=== PATIENT | female | born 1960 | race Caucasian/White ===

== ENCOUNTER 2018-10-28 06:35 | Day surgery (SDC) | payer OTHER, SELFPAY ==
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
[2018-10-28] VITALS (7 sets, daily range): BP systolic 113–140; BP diastolic 56–68; PULSE 48–75; RESP 16–18; TEMP 36.6–37.7; O2SAT 92–100; BMI 20.1
--- NOTE | 2018-10-28 06:42 | EKG12_ITS ---
Test Reason : PRE-OP Blood Pressure : / mmHG Vent. Rate : 062 BPM Atrial Rate : 062 BPM P-R Int : 132 ms QRS Dur : 078 ms QT Int : 416 ms P-R-T Axes : 065 029 058 degrees QTc Int : 422 ms Normal sinus rhythm Normal ECG Confirmed by DIANN MONTGOMERY, YUE ([id number]), acquisition editor ISABELLA LOCKETT ([id number]) on 11/02/2018 2:11:03 PM Referred By: Portillo Vale Confirmed By:YUE TIDWELL MD
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
[2018-10-28] MEDS: Cefazolin 2 GM in 0.9% Normal Saline 100 ML IV (08:53)
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
== END 2018-10-28 13:22 | disposition home or self-care (01) ==
LOC: SDC 06:39 → AC 06:40
PROVIDERS: Family Provider Family Medicine; PCP Family Medicine; Referring Provider Specialist; Visit Provider Specialist
PROC: (CPT 24685; principal; 2018-10-28 08:30)
DX: S52.031A Displaced fracture of olecranon process with intraarticular extension of right ulna, initial encounter for closed fracture (principal); V29.9XXA Motorcycle rider (driver) (passenger) injured in unspecified traffic accident, initial encounter; Y93.55 Activity, bike riding; Y92.410 Unspecified street and highway as the place of occurrence of the external cause; Y99.8 Other external cause status
CPT/HCPCS: 24685; 73080; 76000; 93005; C1713; J7120; J2405

== ENCOUNTER → 2023-02-19 | Outpatient (CLI) | payer OTHER, SELFPAY ==
--- NOTE | 2023-02-19 13:08 | PFTCOMP ---
COMPLETE PULMONARY FUNCTION TEST INTERPRETATION Brief HPI: Patient is a 62-year-old female, currently under the care of myself, who presents to [facility] for complete pulmonary function tests secondary to diagnosis of cough. Respiratory therapist reports good effort and reproducible results. Interpretation: Forced expiration spirometry shows no large airways obstructive ventilatory defect with an FEV1 of 106% predicted. There is no significant bronchodilator response by strict ATS criteria. Spirograms are of good quality and plateau normally. The respiratory flow volume loop shows a normal pattern. Lung volumes by body plethysmography show a normal total lung capacity at 5.81 L, 98% predicted. All other lung volumes are within normal limits. Diffusion capacity by carbon monoxide is normal at 107% predicted. The airway resistance is normal. No previous pulmonary function tests were available for review. Impression: These pulmonary function tests are grossly within normal limits
== END | disposition home or self-care (01) ==
PROVIDERS: PCP Internal Medicine; Referring Provider Internal Medicine Critical Care Medicine; Visit Provider Internal Medicine Critical Care Medicine
DX: R05.1 Acute cough (principal)
CPT/HCPCS: 94060; 94726; 94729

== ENCOUNTER 2024-04-12 07:03 | Day surgery (SDC) | payer OTHER, SELFPAY ==
[2024-04-12] VITALS (9 sets, daily range): BP systolic 76–134; BP diastolic 45–74; PULSE 67–81; RESP 16–18; TEMP 36.1–36.8; O2SAT 95–98; BMI 23.3
--- NOTE | 2024-04-12 07:15 | H&P.OPEN ---
HPI - General General Date of Service: 04/12/24 HPI Narrative JAYJAY VAZQUEZ, is a 63 F who presents for a colonoscopy due to positive Cologuard. Patient denies any changes since her last office visit. 03/12/24 office visit HPI HPI: 61-year-old female presents for colonoscopy due to positive Cologuard. Patient's last colonoscopy was in 2011 negative per patient. Patient has bowel movements daily denies any blood. Patient denies any family history of colon cancer. Patient denies any chronic abdominal pain/nausea/vomiting/reflux. Patient does have known hemorrhoids denies noticing any blood or having irritation due to these. [facility] Medical History (Updated 04/08/24 @ 14:34 by Louisa Parnell) Wears contact lenses Post-menopausal Alcohol use Restless legs Migraine headache Non-smoker Positive colorectal cancer screening using Cologuard test Hx of screening mammography Encounter for screening colonoscopy Encounter for screening, unspecified BMI 24.0-24.9, adult Hypercholesteremia Depression screening Lung nodules Environmental allergies Cough Home Medications ?Medication ?Instructions ?Recorded ?Last Taken ?Type lactobacillus combination no.9 4 4,000 mmu cells PO DAILY 02/07/23 04/10/24 History billion cell capsule (Adult 50 Plus Probiotic) einqkqsz-lbls-wfeap acid 240 1 tab PO DAILY 02/07/23 04/10/24 History mcg-vit K 120 poi-verozo-xaqu 293 tablet (Alive Women's 50 Plus (fruit-veg blend)) super collagen 1 cap PO DAILY 02/07/23 04/10/24 History cetirizine 10 mg tablet (Zyrtec) 10 mg PO HS PRN allergy symptoms 05/27/23 04/09/24 History Allergy/AdvReac Type Severity Reaction Status Date / Time cat dander (cats) Allergy Mild itching Verified 04/12/24 07:24 cockroach Allergy Mild Itching Verified 04/12/24 07:24 Environmental Allergies: Allergy Mild sneezing Verified 04/12/24 07:24 Uncoded (dust mites) grass pollen Allergy Mild sneezing Verified 04/12/24 07:24 povidone-iodine (From Allergy Hives Verified 04/12/24 07:24 Betadine) soap (From Betadine) Allergy Hives Verified 04/12/24 07:24 Family History Father , 74 CAD (coronary artery disease) Hypertension Hyperlipidemia Mother , 79 Hypertension Osteoporosis Hyperlipidemia Idiopathic pulmonary fibrosis Sister Breast cancer Daughter Breast cancer Daughter Leukemia Surgical History (Updated 04/08/24 @ 14:34 by Louisa Parnell) Hx of elbow surgery Hx of colonoscopy Social History number of children: 2 Smoking Status: Never smoker alcohol intake: current alcohol intake frequency: holidays/special occasions only substance use type: does not use diet: other caffeine: Yes what type of physical activity do you participate in: running frequency: 3-4 times per week Past Medical/Surgical History Planned Operation Planned Operative Procedure(s): CSCOPE Previous Hospitalizations/Surgeries HX Hospitalizations: No HX of Surgeries: NONE Any Problems With Anesthesia: No You/Your Family Experience Fever (Hyperthermia) With Anes: No Cholinesterase deficiency: No Cardiovascular Hx Chest Pain within Last 2 months: No Hx of Irregular Heartbeat and/or Afib: No Hx Heart Attack: No Hx Congestive Heart Failure: No Hx Rheumatic Fever: No Hx Hypertension: No Hx Internal Defibrillator: No Hx Pacemaker: No Hx Cardiac Catheterization: No Hx Cardiac Surgery/Stents/Etc.: No Hx Stress Test: No Hx Pain in Legs when Walking/Leg Cramps: No Respiratory Chronic Cough: No HX of Shortness of Breath: No Hoarseness: No Hx Chronic Obstructive Pulmonary Disease (COPD): No Hx Asthma: No Hx Emphysema: No Hx Sleep Apnea: No CPAP: No Hx Respiratory Tract Infection/Cold (presently): No Do You Snore Loudly (louder than talking or can be heard): Yes Do You Often Feel Tired/ Fatigued/ Sleepy Dring Daytime?: No Has Anyone Observed You Stop Breathing During Sleep?: No Result (for STOP score): Negative Hx Smoking: No Smoking Status: Never smoker Gastrointestinal Hx Gastrointestinal Disorders: No Hx Gastrointestinal Bleed: No Hx Ulcer: No Hx Hiatal Hernia: No Difficulty Chewing/Swallowing: No Special diet followed at home: No Hx Unplanned Weight Loss of 20#: No HX Unplanned Weight Gain of 20#: No Neurological Hx Seizures: No HX Syncope/Blackout Spells/Unconsciousness: No Hx Transient Ischemic Attacks (TIA): No Hx Multiple Sclerosis: No Hx Parkinson's Disease: No Hx Head/Neck Injury: No Hx Headaches: Yes (MIGRANES RARELY WITH DEHYDRATION) Hx Back Injury/Pain: No Recent Onset of Speech Difficulty: No Restless Legs: No Does patient have nerve stimulator: No Blood Disorder Hx Leukemia: No Bleeding Tendencies: No Hx Deep Vein Thrombosis: No Hx High Cholesterol: No Blood Transmitted Disease: No Hx Hepatitis: No Hx Cirrhosis: No Hx Anemia: No Hx Blood Disorders: No Reproduction : No Hx Tubal Ligation: No Are You Post Menopause: Yes Genitourinary Hx Renal Disease: No Musculoskeletal Hx Arthritis: No Hx Rheumatoid Arthritis: No Hx Gout: No Recent Onset of an Orthopedic Problem: No Endocrine Hx Diabetes: No Thyroid Disease: No Hx Steroid Therapy: No Psycho/Social Hx Substance Use: No Hx Alcohol Use: Yes (OCCASIONALLY) Hx Anxiety: No Hx Depression: No Mental Illness: No Hx Dementia: No Miscellaneous Hx Cancer: No Recent Exposure to Contagious Disease: No Hx of C-Diff: No Any Loose Teeth: No Allergies cat dander (cats) Allergy (Mild, Verified 04/12/24 07:24) itching cockroach Allergy (Mild, Verified 04/12/24 07:24) Itching Environmental Allergies: Uncoded (dust mites) Allergy (Mild, Verified 04/12/24 07:24) sneezing grass pollen Allergy (Mild, Verified 04/12/24 07:24) sneezing povidone-iodine (From Betadine) Allergy (Verified 04/12/24 07:24) Hives soap (From Betadine) Allergy (Verified 04/12/24 07:24) Hives Discharge Is Pt Admitted From a Intermediate, or a Retirement: No After D/C, Where Do you Plan to Go: Return Home From the PAT History Number of Risk Factors: 1 Physical Exam Const alert, oriented x3 and no apparent distress HEENT normocephalic and head/scalp atraumatic Resp normal respiratory effort Cardio regular rate GI soft to palpation and non-tender; Negative for non-distended Palpation: Negative for guarding Extremity no clubbing, cyanosis or edema Skin no rashes or lesions noted Neuro CN's II-XII intact bilaterally Psych mental status grossly normal Assessment & Plan Assessment/Plan (1) Positive colorectal cancer screening using Cologuard test: Surgery Risks - Colonoscopy I discussed with the patient the risks of the procedure: Yes Risks Include but are not Limited To: Risks include but are not limited to: Bleeding, perforation requiring further surgery, inability to complete colonoscopy requiring barium enema.
--- NOTE | 2024-04-12 08:16 | PCM.PRE.AN2 ---
ASA Classification* ASA Classification ASA Classification: 2 Assessment & Plan Anesthesia* Anesthesia Assessment Anesthesia Assessment: Discussed sedation and/or anesthesia options, risks, benefits, and alternatives with patient/parents/legal guardian/POA. Questions invited. The patient/parents/legal guardian/POA seems to understand and agrees to proceed with anesthesia plan. Reviewed the physical assessment, medical history, allergy history and patient home medications list prior to surgery/procedure/anesthetic and documented any changes. Performed airway and anesthesia risk assessments. Anesthesia Type Anesthesia Type: MAC Anesthesia Focused Assessment* Temperature: 98.2 F Pulse Rate: 81 Blood Pressure: 134/74 Respiratory Rate: 18 Pulse Ox: 96 Airway Assessment Mouth opens: >3 cm Mallampati Score: II Focused Labs Anesthesia Preop lab: CBC CHEMISTRY Glucose 74 mg/dL (70-110) 07/14/14 08:05 COAG Pre-Assessment Diagnosis/Proposed Procedure Planned Operative Procedure(s): CSCOPE Anesthesia History Anesthesia History - extractor operator solvent process: Anesthesia History - extractor operator solvent process Hx Hospitalization No 04/12/24 07:16 Any Problems With Anesthesia No 04/12/24 07:16 Cholinesterase deficiency No 04/12/24 07:16 You/Your Family Experience No 04/12/24 07:16 fever (hyperthermia) with Relationship Recent Exposure to Contagious No 04/12/24 07:26 Disease Does patient have nerve No 04/12/24 07:16 stimulator Patient instructed to have device shut off --Does patient have Pacemaker No 04/12/24 07:26 or ICD? When Was Last Pacemaker Check QUESTION #4 FULL TEXT: You/Your Family Experience fever (hyperthermia) with Anesthesia Last Oral Intake Last Oral intake: Last Oral Intake NPO since 20:00 04/12/24 07:26 Meds taken in AM with sips of No 04/12/24 07:26 water? Meds patient instructed to take am of surgery PONV PONV - extractor operator solvent process: PONV - extractor operator solvent process Female Yes 04/08/24 14:30 HX of Motion Sickness Yes 04/08/24 14:30 HX of N/V After Surgery No 04/08/24 14:30 Non-Smoker Yes 04/08/24 14:30 Duration of Surgery greater No 04/08/24 14:30 than 60 minutes Number of Risk Factors 3 04/08/24 14:30 PONV Score Moderate Risk 04/08/24 14:30 Height & Weight Height & Weight: Anesthesia: Height & Weight Height 5 ft 10 in 04/12/24 07:26 Weight: 74 kg 04/12/24 07:26 Body Mass Index (BMI) 23.3 04/12/24 07:26 Respiratory Assessment Respiratory Assessment - extractor operator solvent process: Respiratory Tract Infection Hx - extractor operator solvent process Hx Respiratory Tract Infection No 04/12/24 07:16 STOP Sleep Apnea STOP Sleep Apnea - extractor operator solvent process: STOP Sleep Apnea - extractor operator solvent process Hx Hypertension No 04/12/24 07:16 Hx Sleep Apnea No 04/12/24 07:16 CPAP No 04/12/24 07:16 BIPAP Do you snore loudly (louder Yes 04/12/24 07:16 than talking or can be heard Do you often feel tired/ No 04/12/24 07:16 fatigued/ sleepy during daytime? Has anyone observed you stop No 04/12/24 07:16 breathing during sleep? STOP Results Negative 04/12/24 08:01 QUESTION #5 FULL TEXT : Do you snore loudly (louder than talking or can be heard through closed doors)? Tobacco Use History Tobacco Use History - extractor operator solvent process: Tobacco Use History - extractor operator solvent process Tobacco Use Smoking Status Never smoker 04/12/24 07:16 Hx Tobacco Use No 04/08/24 14:30 Years Smoking Packs Smoked per Day Smoking Cessation Date was within the last 15 years Hx Smoking Cessation Date Hx Smoking Cessation Counseling Hematologic Medial History Hematologic Hx - extractor operator solvent process: Hematologic Medical Hx - hoop cutter Hx of Blood Transfusion No 04/08/24 14:30 Hx of Transfusion in last 3 No 04/08/24 14:30 Months Date of Last Transfusion (if within last 3 months) Ever experience any problems No 04/08/24 14:30 with transfusion(s)? Specify any problems Hx of Preganancy in last 3 No 04/08/24 14:30 Months Nurse Filling Out Transfusion DSCHRIBER 04/08/24 14:30 & Questions: Date: 04/08/24 04/08/24 14:30 Time: 14:31 04/08/24 14:30 Patient unable to answer at this time (ie. confused, unrespo /Reproduction History /Reproductive History - extractor operator solvent process: /Reproductive Hx- extractor operator solvent process Hx Now No 04/12/24 07:16 Gestational Age (in weeks): EDC: Hx Hx Para Hx Section SAB No 04/08/24 14:30 PFSH Medical History Wears contact lenses Post-menopausal Alcohol use Restless legs Migraine headache Non-smoker Positive colorectal cancer screening using Cologuard test Hx of screening mammography Encounter for screening colonoscopy Encounter for screening, unspecified BMI 24.0-24.9, adult Hypercholesteremia Depression screening Lung nodules Environmental allergies Cough Home Medications ?Medication ?Instructions ?Recorded ?Last Taken ?Type lactobacillus combination no.9 4 4,000 mmu cells PO DAILY 02/07/23 04/10/24 History billion cell capsule (Adult 50 Plus Probiotic) hrdotlla-dbvd-dkrax acid 240 1 tab PO DAILY 02/07/23 04/10/24 History mcg-vit K 120 yrf-pxlkhh-ormq 293 tablet (Alive Women's 50 Plus (fruit-veg blend)) super collagen 1 cap PO DAILY 02/07/23 04/10/24 History cetirizine 10 mg tablet (Zyrtec) 10 mg PO HS PRN allergy symptoms 05/27/23 04/09/24 History Allergy/AdvReac Type Severity Reaction Status Date / Time cat dander (cats) Allergy Mild itching Verified 04/12/24 07:24 cockroach Allergy Mild Itching Verified 04/12/24 07:24 Environmental Allergies: Allergy Mild sneezing Verified 04/12/24 07:24 Uncoded (dust mites) grass pollen Allergy Mild sneezing Verified 04/12/24 07:24 povidone-iodine (From Allergy Hives Verified 04/12/24 07:24 Betadine) soap (From Betadine) Allergy Hives Verified 04/12/24 07:24 Family History Father , 74 CAD (coronary artery disease) Hypertension Hyperlipidemia Mother , 79 Hypertension Osteoporosis Hyperlipidemia Idiopathic pulmonary fibrosis Sister Breast cancer Daughter Breast cancer Daughter Leukemia Surgical History Hx of elbow surgery Hx of colonoscopy Social History number of children: 2 Smoking Status: Never smoker alcohol intake: current alcohol intake frequency: holidays/special occasions only substance use type: does not use diet: other caffeine: Yes what type of physical activity do you participate in: running frequency: 3-4 times per week Review of Systems (Anesthesia) ROS Narrative System reviewed and no additional complaints, except as documented.
--- NOTE | 2024-04-12 08:30 | COLBX_PTH ---
PATIENT: JAYJAY VAZQUEZ LOC: EN U#:[id number] AGE/SX: 63/F ROOM: RE04/12/[address]: Dr. Milagros Parmar MD : 1960 BED: DIS: 04/12/2024 SPEC #: [id number] RECD: 04/12/24 12:45 STATUS: BASILIA REJanine #: [id number] ROBERTO: 04/12/24 08:[address]: Milagros Parmar DEPT: SURGICAL PATHOLOGY RECD BY: Tr Calderon ENTERED: 04/12/24 13:48 SP TYPE: COLON BX OTHR DR: Dr. Judith Black MD Tissues: Rectum, NOS Procedures: Surgery Specimen Level IV HEADER OPERATION: Colonoscopy with biopsy and polypectomy PRE-OP DIAGNOSIS: Positive colorectal cancer screening using Cologuard test TISSUE SUBMITTED: Rectum polyp biopsy x3 MICROSCOPIC DIAGNOSIS Rectal polyp, biopsy: Fragments of hyperplastic polyp. AM.mr 04/13/2024 MICROSCOPIC DESCRIPTION Slides are reviewed. GROSS DESCRIPTION Received in fixative is one container labeled with the patient's name and designated Rectum polyp biopsy x3, rectal polyp x1. The specimen consists of multiple irregular fragments of light garcia soft tissue that in aggregate measure 1.5 x 0.6 x 0.2 cm. The specimen is totally submitted in one cassette. 04/12/2024 TC:5 CPT:14673
--- NOTE | 2024-04-12 09:11 | OP.COLON_ITS ---
Patient Name: Catie Nelson Procedure Date: 04/12/2024 8:32 AM Date of : 1960 Age: 63 Procedure: Colonoscopy Indications: Positive Cologuard test Providers: Milagros Parmar MD Referring MD: Judith Black Medicines: Monitored Anesthesia Care Patient Profile: This is a 63 year old female. Last Colonoscopy: 2011. Complications: No immediate complications. Procedure: Pre-Anesthesia Assessment: - Prior to the procedure, a History and Physical was performed, and patient medications and allergies were reviewed. The patient's tolerance of previous anesthesia was also reviewed. The risks and benefits of the procedure and the sedation options and risks were discussed with the patient. All questions were answered, and informed consent was obtained. Prior Anticoagulants: The patient has taken no anticoagulant or antiplatelet agents. ASA Grade Assessment: Per anesthesia. After reviewing the risks and benefits, the patient was deemed in satisfactory condition to undergo the procedure. After I obtained informed consent, the scope was passed under direct vision. Throughout the procedure, the patient's blood pressure, pulse, and oxygen saturations were monitored continuously. The pediatric colonoscope was introduced through the anus and advanced to the cecum, identified by the appendiceal orifice, ileocecal valve and palpation. The colonoscopy was performed without difficulty. The patient tolerated the procedure well. The quality of the bowel preparation was good. Scope In: 8:39:18 AM Scope Withdrawal Time 0 hours 17 minutes 21 seconds Scope Out: 9:01:59 AM Total Procedure Duration Time 0 hours 22 minutes 41 seconds Findings: Three sessile polyps were found in the rectum. The polyps were less than 5 mm in size. These polyps were removed with a cold biopsy forceps. Resection and retrieval were complete. A less than 5 mm polyp was found in the rectum. The polyp was semi-pedunculated. The polyp was removed with a hot snare. Resection and retrieval were complete. The exam was otherwise without abnormality on direct and retroflexion views. The entire examined colon appeared normal. Irritation of perianal skin A single small-mouthed diverticulum was found in the sigmoid colon. Impression: - Three less than 5 mm polyps in the rectum, removed with a cold biopsy forceps. Resected and retrieved. - One less than 5 mm polyp in the rectum, removed with a hot snare. Resected and retrieved. - The examination was otherwise normal on direct and retroflexion views. - The entire examined colon is normal. - Diverticulosis in the sigmoid colon. Recommendation: - Discharge patient to home. - Resume previous diet. - Continue present medications. - Recommend using Desitin or A&E ointment in the perianal area - Await pathology results. - Repeat colonoscopy in 5 years for surveillance based on pathology results. Procedure Code(s): --- Professional --- 16247, Colonoscopy, flexible; with removal of tumor(s), polyp(s), or other lesion(s) by snare technique 83040, 59, Colonoscopy, flexible; with biopsy, single or multiple Diagnosis Code(s): --- Professional --- D12.8, Benign neoplasm of rectum R19.5, Other fecal abnormalities CPT copyright 2021 [employer]. All rights reserved. The codes documented in this report are preliminary and upon pre coder review may be revised to meet current compliance requirements. MD Milagros Harmon MD 04/12/2024 9:10:35 AM This report has been signed electronically. Number of Addenda: 0 Note Initiated On: 04/12/2024 8:32 AM
--- NOTE | 2024-04-12 09:11 | OP.CCLET_ITS ---
04/12/2024 Judith Black Re : Colonoscopy procedure for Catie Nelson [place] This procedure was performed on Friday, April 12, 2024. My impressions and recommendations are as follows: Impressions : - Three less than 5 mm polyps in the rectum, removed with a cold biopsy forceps. Resected and retrieved. - One less than 5 mm polyp in the rectum, removed with a hot snare. Resected and retrieved. - The examination was otherwise normal on direct and retroflexion views. - The entire examined colon is normal. - Diverticulosis in the sigmoid colon. Recommendations : - Discharge patient to home. - Resume previous diet. - Continue present medications. - Recommend using Desitin or A&E ointment in the perianal area - Await pathology results. - Repeat colonoscopy in 5 years for surveillance based on pathology results. My findings are described in the full procedure note, which is enclosed. If I can be of further assistance, please feel free to contact me at Doctor phone number(s): , Work: . Sincerely, MD Milagros Harmon MD 04/12/2024 9:10:35 AM This report has been signed electronically.
--- NOTE | 2024-04-12 09:12 | PCM.POST.ANE ---
Anesthesia: Postop Eval I Current Vital Signs Temperature: 97 F Pulse Rate: 67 Blood Pressure: 76/52 Respiratory Rate: 16 Pulse Ox: 97 Oxygen Delivery Method: Room Air Assessment Airway patent: Yes Spontaneous unlabored respirations: Yes Mental status: Awake and Calm nausea: No Vomiting: No Anesthesia Complication: No Fluid Hydration Crystalloid volume administer (ml): 50 Total IV fluid infused: 50 Progress Note Anesthesia document: Postop Eval 1 completed: Yes
--- NOTE | 2024-04-12 10:04 | PCM.POSTANE2 ---
Anesthesia Postop Eval I Sum Postop Eval Completion status Anesthesia document: Postop Eval 1 completed: Yes Anesthesia Postop Eval I Summary Anesthesia Postop Eval I Summary: Anesthesia Postop Eval I: Assessment Summary Airway patent Yes 04/12/24 09:14 [email or web address] Spontaneous unlabored Yes 04/12/24 09:14 [email or web address] respirations Mental status Awake,Calm 04/12/24 09:14 [email or web address] nausea No 04/12/24 09:14 [email or web address] Vomiting No 04/12/24 09:14 [email or web address] Anesthesia Postop Eval I: Fluid Summary Crystalloid volume administer 50 04/12/24 09:14 [email or web address] (ml) Colloids volume administered ( ml) Blood Product volume administered (ml) Total IV fluid infused 50 04/12/24 09:14 [email or web address] Anesthesia Postop Eval I: Summary Notes Anesthesia Complication No 04/12/24 09:14 [email or web address] Anesthesia Complication Comment: Post-operative progress note Anesthesia: Postop Eval II Evaluation Mental status: Awake Pain Level: 0 nausea: No Vomiting: No
== END 2024-04-12 09:47 | disposition home or self-care (01) ==
LOC: EN 07:06 → AC 07:06
PROVIDERS: PCP Internal Medicine; Referring Provider Internal Medicine; Visit Provider Surgery
PROC: 0DJD8ZZ Inspection of Lower Intestinal Tract, Via Natural or Artificial Opening Endoscopic (ICD-10-PCS; CPT 45378; principal; 2024-04-12 08:25)
DX: K62.1 Rectal polyp (principal); K57.30 Diverticulosis of large intestine without perforation or abscess without bleeding; E78.00 Pure hypercholesterolemia, unspecified
CPT/HCPCS: 45385; 45380; 88305; J2405